=== PATIENT | female | born 1990 | race Caucasian/White ===

== ENCOUNTER 2020-07-29 05:09 | Inpatient (IN) | payer OTHER ==
[2020-07-29] VITALS (49 sets, daily range): BP systolic 97–146; BP diastolic 50–82; PULSE 60–102; TEMP 97.2–99.4
[~2020-07-29] VITALS: Ht 175.3 cm; Wt 81.4 kg
--- NOTE | 2020-07-29 06:25 | NUR ---
Admits to L&D for scheduled induction of labor. Ambulatory, steady gait noted. Accompanied by spouse.
--- NOTE | 2020-07-29 07:04 | NUR ---
0704: Repositioned to right lateral. 0709: Pit start @ 2mU/min after reactive strip noted.
[2020-07-29 07:19] LABS: BASO % 0.2 % (0.0-2.0); EOS # 0.1 (0.0-0.7); EOS % 0.9 % (0-4.0); GRAN # 7.5 (1.4-6.5); GRAN % 75.3 % (42.2-75.2); HEMOGLOBIN 11.7 g/dl (12.5-16.0); LYMPH # 1.8 (1.2-3.4); LYMPH % 17.7 % (20.0-51.0); MEAN CELL VOLUME 89 fl (80.0-100.0); MEAN CORPUSCULAR HEMOGLOBIN 30 pg (27.0-31.0); MEAN CORPUSCULAR HGB CONC 34 g/dl (33.0-37.0); MEAN PLATELET VOLUME 10.2 fl (7.4-10.4); MONO # 0.5 (0.1-0.6); MONO % 5.4 % (1.7-9.3); PLATELET COUNT 244 K/mm3 (130-400); RED BLOOD COUNT 3.86 M/mm3 (4.10-5.30); REDCELL DISTRIBUTION WIDTH-CV 13.8 % (11.5-14.5)
[2020-07-29 07:31] LABS: HEMATOCRIT 34.3 % (37.0-47.0)
--- NOTE | 2020-07-29 08:49 | NUR ---
here for am rounds, SVE. Patient allowed up to BR to epmty bladder prior to AROM.
--- NOTE | 2020-07-29 08:55 | NUR ---
AROM by , clear fluid noted. Elaine care provided. SVE /-2 per .
--- NOTE | 2020-07-29 09:51 | NUR ---
Assisted out of bed to sit on birthing ball. US repositioned.
--- NOTE | 2020-07-29 10:50 | NUR ---
Patient noticeably uncomfortable with pain of contractions, but states is coping. 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 Reports she is contemplating an epidural, but wants to wait until after repeat SVE to decide. calls @ this time for update, and informed of patient request.
--- NOTE | 2020-07-29 11:20 | NUR ---
Requests epidural @ this time, LR bolus begun. Ismael Pearce CRNA, notified.
--- NOTE | 2020-07-29 11:40 | NUR ---
Ismael Pearce CRNA here for epidural placement per patient request.
[2020-07-29] MEDS ORDERED: PRENATAL TABLET PO (11:43)
[2020-07-29] MEDS ORDERED: NATURAL IRON65 MG (11:43)
--- NOTE | 2020-07-29 11:45 | NUR ---
Sitting upright @ side of bed in preparation for epidural placement.
--- NOTE | 2020-07-29 11:50 | NUR ---
Single shot administered by GAMING CAGE WORKER. No adverse reactions noted. Tolerates procedure well. No test dose administered.
--- NOTE | 2020-07-29 13:05 | NUR ---
Repositioned in right lateral with large red peanut ball.
--- NOTE | 2020-07-29 14:50 | NUR ---
Uterine tachysystole noted, despite LR fluid bolus of 300 mL. Rate of pitocin cut to 10mU/min.
--- NOTE | 2020-07-29 16:15 | NUR ---
C/O back pain, rectal pressure. Repeat SVE ant lip/+1, push attempt to see if remaining cervix reduces. Does not, will allow to continue to labor down. This explained to patient et spouse at bedside. 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
[2020-07-29 18:42] LABS: TRICYCLIC ANTIDEPRESS URINE NEGATIVE
--- NOTE | 2020-07-29 20:45 | NUR ---
Pt able to lift and hold each leg off of bed for 5 seconds. Pt postitioned to sitting on edge of bed. Epidural catheter removed. Tip smooth, blue, and intact. Pt tolerated well. Pt able to ambulate to bathroom with standby assistance. Pt able to void 200 mL. Pericare explained and provided. Clean gown on. Mesh panties and peripad applied. Pt transferred to room 216 by wheelchair with belonings.
[2020-07-30 02:40] VITALS: BP 108/58; PULSE 78; TEMP 98
[2020-07-30 08:58] VITALS: BP 116/56; PULSE 76; TEMP 97.8
[2020-07-30] MEDS ORDERED: IBU600 MG PO (09:23)
--- NOTE | 2020-07-30 10:00 | NUR ---
Initial visit; Family thanked Porcelain Enamel Sprayer for offering congratulations and God's blessings for the of their son. Porcelain Enamel Sprayer thankded family for choosing [facility].
[2020-07-30 16:25] VITALS: BP 106/67; PULSE 83; TEMP 97.3
[2020-07-30 20:30] VITALS: BP 117/67; PULSE 67; TEMP 98.6
[2020-07-31 08:15] VITALS: BP 115/65; PULSE 79; TEMP 98.4
--- NOTE | 2020-07-31 16:00 | NUR ---
Discharge instructions given, verbalizes understanding.
== END 2020-07-31 16:30 | disposition home or self-care (01) | DRG 807 ==
LOC: OB 05:09 → LDR 06:18 → OB 23:00
PROVIDERS: ADMIT Obstetrics & Gynecology
PROC: 10E0XZZ Delivery of Products of Conception, External Approach (ICD-10-PCS; principal; 2020-07-29)
PROC: 0KQM0ZZ Repair Perineum Muscle, Open Approach (ICD-10-PCS; 2020-07-29)
PROC: 10907ZC Drainage of Amniotic Fluid, Therapeutic from Products of Conception, Via Natural or Artificial Opening (ICD-10-PCS; 2020-07-29)
DX: O99.02 Anemia complicating childbirth (principal); Z37.0 Single live birth; D64.9 Anemia, unspecified; O70.1 Second degree perineal laceration during delivery; Z3A.39 39 weeks gestation of pregnancy
CPT/HCPCS: J2590; J2795; J7120

== ENCOUNTER 2022-07-03 01:25 | Inpatient (IN) | payer OTHER ==
[~2022-07-03] VITALS: Ht 175.3 cm; Wt 77.7 kg
[2022-07-03] VITALS (20 sets, daily range): BP systolic 97–145; BP diastolic 52–70; PULSE 67–97; TEMP 97.9–98.3
[~2022-07-03 01:25] MED LIST: IBU600 MG PO; NATURAL IRON65 MG; PRENATAL TABLET PO; TYLENOL PM EXTR1 TA1 PO; ZOLOFT 50MG50 MG PO
--- NOTE | 2022-07-03 02:30 | NUR ---
FHT tracing broken during this time due to maternal positioning during contractions. Pt goes between laying in bed to sitting upright for comfort when contractions occur while breathing through the contractions.
--- NOTE | 2022-07-03 02:45 | NUR ---
Break in tracing on this strip due to maternal position. Pt continues to change from laying in bed to sitting upright in bed. Pt breathing through contractions waiting on anesthesia to arrive for epidural placement.
[2022-07-03 03:03] LABS: BASO % 0.3 % (0.0-2.0); EOS % 0.2 % (0.0-4.0); GRAN # 9.1 K/mm3 (1.4-6.5); GRAN % 73.3 % (42.2-75.2); LYMPH # 2.3 K/mm3 (1.2-3.4); LYMPH % 18.7 % (20.0-51.0); MEAN CELL VOLUME 85 fl (80.0-100.0); MEAN CORPUSCULAR HEMOGLOBIN 29 pg (27-31); MEAN CORPUSCULAR HGB CONC 34 g/dl (33.0-37.0); MONO # 0.9 K/mm3 (0.1-0.6); MONO % 7.2 % (1.7-9.3); PLATELET COUNT 302 K/mm3 (130-400); RED BLOOD COUNT 4.12 M/mm3 (4.10-5.30); REDCELL DISTRIBUTION WIDTH-CV 13.5 % (11.5-14.5)
[2022-07-03 03:05] LABS: HEMATOCRIT 35.1 % (37.0-47.0)
--- NOTE | 2022-07-03 03:15 | NUR ---
Pt sitting upright on the side of bed during this tracing for epidural placement. Sejal at bedside.
--- NOTE | 2022-07-03 03:30 | NUR ---
Pt sitting on side of bed for epidural placement during this tracing. Once epidural placed and pump was running, pt positioned with a tilt to the right and the head of the bed slightly elevated.
--- NOTE | 2022-07-03 10:27 | NUR ---
0955 RECEIVED REPORT FROM HANY GUERRA AND ASSUMED CARE AT THIS TIME.
[2022-07-04 07:30] VITALS: BP 113/56; PULSE 57; TEMP 97.9
[2022-07-04] MEDS ORDERED: MOTRIN 800800 MG/TAB PO (08:06)
== END 2022-07-04 10:50 | disposition home or self-care (01) | DRG 807 ==
LOC: LDRO 01:25 → LDR 02:45 → OB 07:07
PROVIDERS: Obstetrics & Gynecology; ADMIT Obstetrics & Gynecology
PROC: 10E0XZZ Delivery of Products of Conception, External Approach (ICD-10-PCS; principal; 2022-07-03)
PROC: 0HQ9XZZ Repair Perineum Skin, External Approach (ICD-10-PCS; 2022-07-03)
PROC: 0UQMXZZ Repair Vulva, External Approach (ICD-10-PCS; 2022-07-03)
DX: O99.344 Other mental disorders complicating childbirth (principal); Z37.0 Single live birth; F41.9 Anxiety disorder, unspecified; O99.02 Anemia complicating childbirth; D64.9 Anemia, unspecified; Z3A.38 38 weeks gestation of pregnancy; O70.0 First degree perineal laceration during delivery
CPT/HCPCS: J2401; J2795; J7120